=== PATIENT | female | born 1980 | race African-American/Black ===

== ENCOUNTER → 2016-11-10 | Outpatient (CLI) | payer OTHER ==
[~2016-11-10] MED LIST: ALBUTEROL17 GM INH; IBUPROFEN800 MG PO; IMITREX50 MG PO; SEASONALE1 BLIST PA PO; TAMOXIFEN CITRA20 MG PO; TOPAMAX50 MG PO; ZOLOFT50 MG PO
--- NOTE | ~2016-11-10 | US24 ---
[facility] A Service of [facility] RADIOLOGY TEXT RESULTS PATIENT: TJ THIBODEAUX LOCATION: [facility] : [birth year] UNIT #: [id number] AGE: [address]: Vince Gaitan MD SEX: F ORDER DR: [id number] [facility] [address] [place], [place] [address] [id number] O MR#: [id number] Acc #: [id number] NAME: TJ THIBODEAUX : 1980 SEX: F STUDY DATE/TIME: 11/10/2016 14:16 UNIT: [facility] ROOM: STUDY DESCRIPTION: US Breast Unilateral Attending Physician: Vince Gaitan M.D. Referring Physician: Vince Gaitan M.D. Ordering Physician: Vince Gaitan M.D. Primary Care Physician: Meredith Neal M.D. MEDICAL IMAGING REPORT This report is preliminary unless electronic signature is present EXAM Left breast ultrasound INDICATIONS History of left breast cancer. Patient is status post left mastectomy and is undergoing breast reconstruction. Probable mass in the left peristernal region. PROCEDURE Targeted lorenz-scale and Doppler imaging in the left peristernal/breast region in the area of palpable concern. COMPARISON None. FINDINGS In the area of palpable concern, there is some poorly defined mixed echotexture soft tissue fullness. No discrete mass is seen. IMPRESSION No discrete mass seen in the area of palpable concern. There is some mixed echotexture poorly defined soft tissue. This may represent scar tissue or possibly fat necrosis. The possibility of malignancy is not completely excluded. Consider evaluation of this region with contrast enhanced chest CT. PET scan may also be helpful. Dictated by... Tucker Juarez M.D. THIS IS AN ELECTRONICALLY VERIFIED REPORT Tucker Juarez M.D. at 11/11/2016 10:02 AM [facility] A Service [facility] RADIOLOGY TEXT RESULTS PATIENT: TJ THIBODEAUX LOCATION: [facility] : [birth year] UNIT #: [id number] AGE: [address]: Vince Gaitan MD SEX: F ORDER DR: Sherry TD: 11/10/2016 21:48 JOB #: [id number] MEDICAL IMAGING REPORT Page 1 of 1 COPY
== END | disposition home or self-care (01) ==
LOC: CWCC 14:07
DX: C50.912 Malignant neoplasm of unspecified site of left female breast (principal)
CPT/HCPCS: 76641

== ENCOUNTER → 2017-02-12 | Outpatient (CLI) | payer OTHER ==
--- NOTE | ~2017-02-12 | XA80 ---
[facility] A Service of [facility] RADIOLOGY TEXT RESULTS PATIENT: TJ THIBODEAUX LOCATION: [facility] : 80 UNIT #: [id number] AGE: [address]: Vince Gaitan MD SEX: F ORDER DR: [id number] [facility] [address] [place], [place] [address] [id number] O MR#: [id number] Acc #: [id number] NAME: TJ THIBODEAUX : 1980 SEX: F STUDY DATE/TIME: 02/12/2017 10:11 UNIT: [facility] ROOM: STUDY DESCRIPTION: XA CVC Remove Tunneled Cath W Attending Physician: Vince Gaitan M.D. Ordering Physician: Vince Gaitan M.D. Primary Care Physician: Meredith Neal M.D. MEDICAL IMAGING REPORT This report is preliminary unless electronic signature is present EXAM Mediport explant under fluoroscopy 02/12/2017 HISTORY Breast cancer. Patient referred for port removal. PROCEDURE Initially, IV access was obtained under ultrasound guidance and a micropuncture set placed for conscious sedation. Attention was turned the right anterior chest wall. This was sterilely prepped with Chlorhexidine solution and sterilely draped. Maximal sterile barrier technique, including gloves, gowns, shoe covers, hats and masks, was utilized. The skin over the upper aspect of the port was anesthetized. A 3 cm incision was made. The port was dissected free and removed without difficulty. After obtaining hemostasis, the deep fascia was closed with 3-0 interrupted Vicryl sutures. The dermis closed with 4-0 Monocryl continuous suture. Dermabond was placed over each site. Procedure very well tolerated. 2 spot radiographs and an ultrasound image recorded. Total fluoroscopy time 0.1 minutes. Exposure 2 mGy air kerma. Dictated by... Benny Martinez M.D. THIS IS AN ELECTRONICALLY VERIFIED REPORT Benny Martinez M.D. at 02/14/2017 9:32 AM ZAHIDA/jeana TD: 02/12/2017 21:22 [facility] A Service of [facility] RADIOLOGY TEXT RESULTS PATIENT: TJ THIBODEAUX LOCATION: [facility] #: [id number] : [birth year] UNIT #: [id number] AGE: [address]: Vince Gaitan MD SEX: F ORDER DR: JOB #: [id number] MEDICAL IMAGING REPORT Page 1 of 1 COPY
[2017-02-12 08:19] LABS: HEMATOCRIT 34.2 % (35.0-45.0); HEMOGLOBIN 11.3 gm/dL (12.0-16.0); MEAN CELL VOLUME 87.3 FL (83-96); MEAN CORPUSCULAR HEMOGLOBIN 28.9 PG (28-34); MEAN CORPUSCULAR HGB CONC 33.1 g/dL (30-36); MEAN PLATELET VOLUME 7.7 FL (6.5-11.5); RED BLOOD COUNT 3.92 X10e (3.90-5.30); RED CELL DISTRIBUTION WIDTH 14.7 % (11.0-15.5)
[2017-02-12 08:42] LABS: INR 0.9; PARTIAL THROMBOPLASTIN TIME 26.9 SECONDS (23.5-31.3); PROTHROMBIN TIME (PATIENT) 10.2 SECONDS (10.0-11.7)
== END | disposition home or self-care (01) ==
LOC: CIVR 02-11 09:00
PROVIDERS: Internal Medicine Medical Oncology
DX: Z45.2 Encounter for adjustment and management of vascular access device (principal); C50.919 Malignant neoplasm of unspecified site of unspecified female breast; J45.909 Unspecified asthma, uncomplicated; I10 Essential (primary) hypertension; Z79.899 Other long term (current) drug therapy; Z98.890 Other specified postprocedural states
CPT/HCPCS: 76937; 77001; 85027; 85610; 85730; C1894; J2250; J3010

== ENCOUNTER 2017-03-27 19:05 | Emergency (ER) | payer OTHER ==
[~2017-03-27] VITALS: Ht 152.4 cm; Wt 80.7 kg
--- NOTE | ~2017-03-27 | CT2 ---
[facility] A Service of [facility] RADIOLOGY TEXT RESULTS PATIENT: TJ THIBODEAUX LOCATION: [facility] : 80 UNIT #: [id number] AGE: [address]: Keith Lay MD SEX: F ORDER DR: [id number] [facility] [address] [place], [place] [address] [id number] E MR#: [id number] Acc #: [id number] NAME: TJ THIBODEAUX. : 1980 SEX: F STUDY DATE/TIME: 03/27/2017 22:49 UNIT: [facility] ROOM: STUDY DESCRIPTION: CT Abd and Pelv W Cont Attending Physician: Keith Lay M.D. Ordering Physician: Keith Lay M.D. Primary Care Physician: Meredith Neal M.D. MEDICAL IMAGING REPORT This report is preliminary unless electronic signature is present EXAM CT abdomen and pelvis with contrast, 03/27/2017. HISTORY 37-year-old female in the ED complaining of 2-day history of right lower quadrant pain and nausea. She has a history of left mastectomy December 2015, completing chemotherapy in October 2016. TECHNIQUE CT examination of the abdomen and pelvis with IV contrast. GI contrast was not ordered, limiting evaluation of the GI tract. This CT exam was performed with one or more of the following radiation dose reduction techniques: Automatic exposure control, adjustment of mA and/or kV according to patient size, and iterative reconstruction. FINDINGS ABDOMEN FINDINGS: Gallbladder is surgically absent. There is moderately severe dilatation of the extrahepatic bile duct measuring up to 1.6 cm, but there is no intrahepatic bile duct dilatation. One or two possible tiny densities are questioned within the distal common bile duct, possibly representing bile duct stone material. Consider followup ERCP or MRCP, particularly if there is laboratory evidence of biliary obstruction. Liver, pancreas, spleen and kidneys are normal in size and appearance. Small bowel and colon are normal in caliber and appearance, as imaged. The appendix is not identified. PELVIS FINDINGS: There is a large, multicystic, mixed-attenuation right ovary mass, measuring up to 8.4 x 5.5 cm. Cystic ovarian neoplasm is not excluded. There is also a contralateral multicystic left ovary mass measuring 4 cm. The uterus appears normal. Gynecologic surgical referral is recommended for further management. Followup pelvic ultrasound examination is also recommended. Urinary bladder and rectum are within STS. [facility] A Service of [facility] RADIOLOGY TEXT RESULTS PATIENT: TJ THIBODEAUX LOCATION: [facility] : [birth year] UNIT #: [id number] AGE: [address]: Keith Lay MD SEX: F ORDER DR: normal limits. Limited lung base images show no active disease in the lower chest. IMPRESSION 1. Cholecystectomy. Significant dilatation of the extrahepatic bile duct measuring up to 16 mm, but no intrahepatic bile duct dilatation. One or two potential tiny bile duct stones are questioned. Consider followup ERCP or MRCP if there is clinical or laboratory evidence of biliary obstruction. The pancreas is normal. 2. Large, mixed-attenuation, multicystic right ovary mass measuring up to 8.4 cm and a smaller 4 cm cystic left ovary mass. Cystic ovarian neoplasm is not excluded. Recommend followup pelvic ultrasound examination and gynecologic surgical referral for additional management. No free pelvic fluid. Uterus is normal. 3. The remainder of the examination is negative. The appendix is not identified. Dictated by... Randall Vargas M.D. THIS IS AN ELECTRONICALLY VERIFIED REPORT Randall Vargas M.D. at 03/28/2017 5:58 AM TERRANCE/roxana TD: 03/28/2017 03:50 JOB #: [id number] MEDICAL IMAGING REPORT Page 1 of 1 COPY
[2017-03-27 19:51] LABS: BASOPHIL% 0.9 % (0-2.5); EOSINOPHIL% 0.5 % (0.0-7.0); HEMOGLOBIN 11.4 gm/dL (12.0-16.0); LYMPHOCYTE# 0.8 X10e3 (1.0-3.5); LYMPHOCYTE% 14.3 % (17.0-45.0); MEAN CELL VOLUME 87.9 FL (83-96); MEAN CORPUSCULAR HEMOGLOBIN 29.5 PG (28-34); MEAN CORPUSCULAR HGB CONC 33.5 g/dL (30-36); MEAN PLATELET VOLUME 8.2 FL (6.5-11.5); MONOCYTE# 0.5 X10e3 (0-1.0); MONOCYTE% 8.7 % (3.0-12.0); NEUTROPHIL# 4.4 X10e3 (1.5-7.1); NEUTROPHIL% 75.6 % (40-75); PLATELET COUNT 168 X10e3 (140-420); RED BLOOD COUNT 3.87 X10e (3.90-5.30); RED CELL DISTRIBUTION WIDTH 14.1 % (11.0-15.5); WHITE BLOOD COUNT 5.8 X10e3 (4.0-10.5)
[2017-03-27 19:53] LABS: DIFF IND NO
[2017-03-27 19:56] LABS: URINE SOURCE CLEAN CATCH
[2017-03-27 20:00] LABS: URINE APPEARANCE CLOUDY; URINE BILIRUBIN NEG (NEG); URINE BLOOD NEG (NEG); URINE COLOR YELLOW; URINE GLUCOSE NEG (NEG); URINE KETONE NEG (NEG); URINE LEUKOCYTE ESTERASE TRACE (NEG); URINE NITRATE NEG (NEG); URINE PROTEIN NEG (NEG); URINE SPECIFIC GRAVITY 1.005 (1.003-1.035); URINE UROBILINOGEN 0.2 MG/DL (NEG)
[2017-03-27 20:02] LABS: CULTURE INDICATED? YES; URBCS1 AUWI 0-2 /[HPF] (0-2); URINE BACTERIA AUWI 1+ (NEGATIVE); URINE SQUAMOUS EPITHELIAL CELL OCC /[HPF]
[2017-03-27 20:14] LABS: ALBUMIN SERUM 3.9 g/dL (3.5-5.0); ALKALINE PHOSPHATASE 52 U/L (32-92); ALT (SGPT) 15 U/L (10-40); AST (SGOT) 27 U/L (10-42); BILIRUBIN,TOTAL 0.5 mg/dL (0.2-2.0); BLOOD UREA NITROGEN 10 mg/dL (9-23); CALCIUM SERUM 8.9 mg/dL (8.4-10.2); CARBON DIOXIDE 24 mmol/L (22-31); CHLORIDE 104 mmol/L (100-111); CREATININE SERUM 0.8 mg/dL (0.6-1.4); GLOM FILT RATE Estimated 109.3 mL/min (>60); GLUCOSE FASTING 92 mg/dL (70-110); LIPASE 29 U/L (22-51); POTASSIUM 3.9 mmol/L (3.5-5.1); PROTEIN TOTAL SERUM 8.1 g/dL (6.0-8.3); SODIUM 134 mmol/L (135-145)
[2017-03-27 20:16] LABS: BILIRUBIN, DIRECT <0.1 mg/dL (0.0-0.2); BILIRUBIN,INDIRECT 0.4 mg/dL (0.0-0.9)
== END 2017-03-28 00:06 | disposition home or self-care (01) ==
LOC: CED 19:05
DX: R19.03 Right lower quadrant abdominal swelling, mass and lump (principal); Z98.51 Tubal ligation status; Z90.49 Acquired absence of other specified parts of digestive tract; Z91.040 Latex allergy status; Z88.5 Allergy status to narcotic agent
CPT/HCPCS: 36415; 74177; 80048; 80076; 81003; 83690; 84703; 85025; 87086; 96374; 96376; 99284; J2270; Q9967